=== PATIENT | male | born 1955 | race African-American/Black ===

== ENCOUNTER 2020-03-30 07:52 | Outpatient (CLI) | payer BC ==
[2020-03-30] MEDS ORDERED: IRON SUCROSE COMPLEX 300 MG in NORMAL SALINE 250 ML IV PRN (07:58)
[2020-03-30 08:34] VITALS: BP 137/86
== END 2020-03-30 10:59 | disposition home or self-care (01) ==
LOC: II 07:52 → 5TH 07:57 → II 10:59
PROVIDERS: ATTEND Internal Medicine Nephrology
DX: D50.9 Iron deficiency anemia, unspecified (principal)
CPT/HCPCS: 96365; 96366; J1756; J7050

== ENCOUNTER 2020-04-13 07:54 | Outpatient (CLI) | payer BC ==
[~2020-04-13 07:54] MED LIST: IRON SUCROSE COMPLEX 300 MG in NORMAL SALINE 250 ML IV PRN
[2020-04-13 08:49] VITALS: BP 151/93
== END 2020-04-13 11:17 | disposition home or self-care (01) ==
LOC: II 07:54 → 5TH 07:55 → II 11:17
PROVIDERS: ATTEND Internal Medicine Nephrology
DX: D50.9 Iron deficiency anemia, unspecified (principal); N18.6 End stage renal disease
CPT/HCPCS: 96365; 96366; J1756; J7050

== ENCOUNTER 2020-04-27 08:45 | Outpatient (CLI) | payer BC ==
[2020-04-27 10:29] VITALS: BP 139/74
== END 2020-04-27 11:48 | disposition home or self-care (01) ==
LOC: II 08:45 → 5TH 10:16 → II 11:48
PROVIDERS: ATTEND Internal Medicine Nephrology
DX: D50.9 Iron deficiency anemia, unspecified (principal)
CPT/HCPCS: 96365; 96366; J1756; J7050